=== PATIENT | male | born 1995 | race Caucasian/White ===

== ENCOUNTER 2016-08-19 21:47 | Emergency (ER) | payer BC, OTHER ==
[~2016-08-19] VITALS: Ht 185.4 cm; Wt 67.5 kg
[~2016-08-19 21:47] MED LIST: ALBU1AER INH; IBUP-232 PO
[2016-08-19 22:00] VITALS: BP 112/66; PULSE 86; RESP 17; TEMP 98.2; O2SAT 97
[2016-08-19] MEDS ORDERED: IBUPROFEN 800 MG TAB PO ONE (22:15)
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
[2016-08-19] MEDS ORDERED: IBUP800T23 PO (23:00)
== END 2016-08-19 23:06 | disposition home or self-care (01) ==
LOC: PHED 21:47 → PHEFT 23:06
DX: S19.9XXA Unspecified injury of neck, initial encounter (principal); R07.0 Pain in throat; R06.02 Shortness of breath; W50.0XXA Accidental hit or strike by another person, initial encounter; Y93.67 Activity, basketball; Y92.9 Unspecified place or not applicable; Y99.8 Other external cause status
CPT/HCPCS: 70360; 99283

== ENCOUNTER 2017-05-29 17:41 | Emergency (ER) | payer BC ==
[~2017-05-29] VITALS: Ht 190.5 cm; Wt 70.0 kg
[~2017-05-29 17:41] MED LIST changes: -ALBU1AER INH; -IBUP-232 PO; +IBUP1TAB7 PO
[2017-05-29 17:44] VITALS: BP 125/74; PULSE 77; RESP 16; TEMP 99.4; O2SAT 98
[2017-05-29] MEDS ORDERED: PROMSYP3 PO (19:35)
[2017-05-29] MEDS ORDERED: ALBUAER3 INH (19:35)
[2017-05-29] MEDS ORDERED: PRED20 PO (19:35)
--- NOTE | 2017-05-29 19:37 | PD ---
HPI Chief Complaint: Cold / Flu Symptoms Time Seen by Provider: 18:42 Travel History International Travel<30 days: No Contact w/Intl Traveler<30days: No Traveled to known affect area: No History of Present Illness HPI This is a 21-year-old male here for evaluation of cough and congestion intermittently for several weeks. Occasional wheezing. He denies fever or chills. No chest pain or shortness of breath. Symptoms severity is mild. He was encouraged by his mother to seek evaluation because she was recently diagnosed with bronchitis. No aggravating or alleviating factors. He has not attempted any errc-keo-xijbvyl medication for symptom treatment. No past medical history. No foreign travel. PFSH Past Medical History Asthma: Yes ( CHILD) Diminished Hearing: No Respiratory: Yes ([facility]) Immunizations Current: Yes Influenza Vaccination: No Past Surgical History Appendectomy: Yes Social History Alcohol Use: No Tobacco Use: No Substance Use: No Allergies-Medications (Allergen,Severity, Reaction): Coded Allergies: ondansetron (Unverified Allergy, Mild, ANXIETY, SKIN CRAWLS, 05/29/17) Reported Meds & Prescriptions Reported Meds & Active Scripts Active Promethazine-Dextromethorphan Liq (Dextromethorphan-Promethazine Liq) 6.25-15 Mg /5 Ml Syrp 10 Ml PO Q6HR PRN Proair Hfa 8.5 GM Inh (Albuterol Sulfate) 90 Mcg/Act Aer 2 Puff INH Q4-6H PRN 108 mcg/actuation Prednisone 20 Mg Tab 40 Mg PO DAILY Take 40 mg (2 tablets) daily for 5 days Review of Systems Except as stated in HPI: all other systems reviewed are Neg General / Constitutional: No: Fever Eyes: No: Visual changes HENT: Positive: Congestion, No: Headaches Cardiovascular: No: Chest Pain or Discomfort Respiratory: Positive: Cough Gastrointestinal: No: Abdominal Pain Genitourinary: No: Dysuria Musculoskeletal: No: Pain Skin: No Rash Physical Exam Narrative GENERAL: Alert well-appearing 21-year-old male SKIN: Warm and dry. HEAD: Normocephalic. EYES: No injection or drainage. NECK: Supple, trachea midline. CARDIOVASCULAR: Regular rate and rhythm RESPIRATORY: Breath sounds equal bilaterally. No accessory muscle use. GASTROINTESTINAL: Abdomen soft, non-tender, nondistended. MUSCULOSKELETAL: No cyanosis, or edema. BACK: No CVA tenderness. Data Data Last Documented VS Vital Signs Date Time Temp Pulse Resp B/P (MAP) Pulse Ox O2 Delivery O2 Flow Rate FiO2 05/29/17 17:44 99.4 77 16 125/74 (91) 98 Orders Orders Ed Discharge Order (05/29/17 19:37) MDM Medical Decision Making Medical Screen Exam Complete: Yes Emergency Medical Condition: Yes Differential Diagnosis Viral bronchitis, URI, pneumonia unlikely Narrative Course This is a 21-year-old male here with reported cough intermittently 1-2 weeks. Patient is well-appearing. He has a history of asthma requiring steroids in the past. Patient's vital signs are stable. He is afebrile. No adventitious breath sounds. I do not feel chest x-ray is necessary. This appears to be viral bronchitis. He was instructed faults primary doctor. Diagnosis Primary Impression: Viral bronchitis Referrals: Primary Care Physician Additional Instructions: Medication as directed. Stay well hydrated. Follow-up with her primary doctor. Return if he developed new or worsening symptoms Scripts Benzonatate (Tessalon Perles) 100 Mg Cap 200 MG PO TID Y for COUGH, #14 CAP 0 Refills Prov: Ethel Ríos 05/29/17 Albuterol 8.5 GM Inh (Proair Hfa 8.5 GM Inh) 90 Mcg/Act Aer 2 PUFF INH Q4-6H Y for SHORTNESS OF BREATH, #1 INHALER 0 Refills 108 mcg/actuation Prov: Ethel Ríos 05/29/17 Prednisone (Prednisone) 20 Mg Tab 40 MG PO DAILY, #10 TAB 0 Refills Take 40 mg (2 tablets) daily for 5 days Prov: Ethel Ríos 05/29/17 Disposition: 01 DISCHARGE HOME Condition: Stable Ethel Ríos May 29, 2017 19:37
[2017-05-29] MEDS ORDERED: BENZ100 PO (20:05)
== END 2017-05-29 20:09 | disposition home or self-care (01) ==
LOC: PHED 17:41 → PHEFT 20:09
DX: J20.8 Acute bronchitis due to other specified organisms (principal); J45.909 Unspecified asthma, uncomplicated; Z79.899 Other long term (current) drug therapy; Z88.8 Allergy status to other drugs, medicaments and biological substances
CPT/HCPCS: 99283